=== PATIENT | female | born 1940 | race Caucasian/White ===

== ENCOUNTER 2021-11-05 19:56 | Inpatient (IN) | payer OTHER, MEDICARE ==
[2021-11-05] MEDS ORDERED: Ketorolac Tromethamine 30 MG/ML VIAL ONE (20:43)
[2021-11-05] MEDS ORDERED: Morphine 4 MG/ML VIAL ONE (20:43)
[2021-11-05 20:48] LABS: #Eosinphils 0.1 thou/uL (0.0-0.7); #Lymphocytes 1.1 thou/uL (1.20-3.40); #Monocytes 0.7 thou/uL (0.11-0.59); #Neutrophils 6.4 thou/uL (1.40-6.50); %Basophils 0.2 % (0.0-1.0); %Eosinophils 1.4 % (0.0-10.0); %Lymphocytes 12.9 % (21.0-51.0); %Monocytes 8.9 % (0.0-10.0); %Neutrophils 76.6 % (42.0-75.0); Hemoglobin 10.8 g/dL (12.0-16.0); Mean Corpuscular HGB CONC 30.2 g/dL (32.0-36.0); Mean Corpuscular Hemoglobin 23.8 pg (27.0-31.0); Mean Corpuscular Volume 78.6 fL (78.0-98.0); Mean Platelet Volume 8.2 fL (7.4-10.4); Platelet Count 294 thou/uL (130-400); RBC Distribution Width 18.2 % (11.5-14.5); Red Blood Cell (RBC) Count 4.56 mill/uL (4.20-5.40); White Blood Cell (WBC) Count 8.4 thou/uL (4.8-10.8)
[2021-11-05 21:09] LABS: ALT (SGPT) 15 U/L (8-55); AST (SGOT) 17 U/L (5-34); Albumin 3.6 g/dL (3.4-4.8); Alkaline Phosphatase 121 U/L (40-110); Anion Gap 13 mmol/L (10-20); BUN (Urea Nitrogen) 33 mg/dL (9.8-20.1); Bilirubin, Total 0.4 mg/dL (0.2-1.2); Calc. Creatinine Clearance 0 mL/min (70-130); Calcium 9.7 mg/dL (7.8-10.44); Carbon Dioxide 31 mmol/L (23-31); Chloride 101 mmol/L (98-107); Globulin 3.3 g/dL (2.4-3.5); Glucose 237 mg/dL (83-110); Potassium 3.9 mmol/L (3.5-5.1); Protein, Total 6.9 g/dL (5.8-8.1); Sodium 141 mmol/L (136-145)
[2021-11-05] MEDS ORDERED: Morphine 2 MG/ML VIAL SLOW IVP PRN (21:47)
[2021-11-05] MEDS ORDERED: Dextrose 5% in Water 1,000 ML IV PRN (21:47)
[2021-11-05] MEDS ORDERED: traMADol HCl 50 MG TAB PO PRN ×3 (21:47→21:54)
[2021-11-05] MEDS ORDERED: Dextrose 50% Abboject 50 ML SYRINGE SLOW IVP PRN (21:47)
[2021-11-05] MEDS ORDERED: Ondansetron ODT 4 MG TAB PO PRN (21:47)
[2021-11-05] MEDS ORDERED: hydrALAZINE 20 MG/ML VIAL SLOW IVP PRN (21:47)
[2021-11-05] MEDS ORDERED: Ondansetron PF 4 MG/2 ML Vial IVP PRN (21:47)
[2021-11-05 22:07] LABS: Phosphorus 2.9 mg/dL (2.3-4.7)
[2021-11-05] MEDS: traMADol HCl 50 MG TAB PO SCH (23:47)
[2021-11-05] MEDS: Cyclobenzaprine 10 MG TAB PO PRN (23:48)
[2021-11-05] MEDS: Acetaminophen 500 MG TAB PO SCH (23:48)
[2021-11-05] MEDS ORDERED: Sodium Chloride 0.9% 1,000 ML IV SCH (23:55)
[2021-11-06 01:00] LABS: SARS-CoV-2 NAA Rapid Test Not Detected (NotDetected)
[2021-11-06 02:16] VITALS: BMI 40.2
[2021-11-06 05:11] LABS: Bacteria/HPF 3+ HPF (None Seen); Bilirubin Negative (Negative); Blood, Urine Negative (Negative); Clarity Clear (Clear); Glucose, Urine (Dipstick) Normal (Negative); Ketone, Urine Negative (Negative); Leukocyte 500 Leu/uL (Negative); Nitrite 1+ (Negative); Protein, Urine (Dipstick) Negative (Neg-Trace); RBC/HPF 0-3 HPF (0-3); Specific Gravity, Urine 1.016 (1.002-1.036); Urobilinogen Normal mg/dL (Less than 2); WBC/HPF 21-50 HPF (0-3)
[2021-11-06] MEDS: Acetaminophen 500 MG TAB PO SCH ×4 (05:38→23:45)
[2021-11-06] MEDS: traMADol HCl 50 MG TAB PO SCH ×4 (05:40→23:46)
[2021-11-06 05:43] LABS: #Eosinphils 0.1 thou/uL (0.0-0.7); #Lymphocytes 0.7 thou/uL (1.20-3.40); #Monocytes 0.8 thou/uL (0.11-0.59); #Neutrophils 6.1 thou/uL (1.40-6.50); %Eosinophils 0.7 % (0.0-10.0); %Lymphocytes 9.3 % (21.0-51.0); %Monocytes 10.9 % (0.0-10.0); %Neutrophils 79.1 % (42.0-75.0); Hemoglobin 10.1 g/dL (12.0-16.0); Mean Corpuscular Hemoglobin 24.6 pg (27.0-31.0); Mean Corpuscular Volume 79.3 fL (78.0-98.0); Mean Platelet Volume 7.7 fL (7.4-10.4); Platelet Count 226 thou/uL (130-400); RBC Distribution Width 17.8 % (11.5-14.5); Red Blood Cell (RBC) Count 4.08 mill/uL (4.20-5.40); White Blood Cell (WBC) Count 7.7 thou/uL (4.8-10.8)
[2021-11-06 06:12] LABS: Anion Gap 11 mmol/L (10-20); BUN (Urea Nitrogen) 28 mg/dL (9.8-20.1); Calc. Creatinine Clearance 70 mL/min (70-130); Calcium 9.3 mg/dL (7.8-10.44); Carbon Dioxide 31 mmol/L (23-31); Chloride 104 mmol/L (98-107); Glucose 151 mg/dL (83-110); Phosphorus 4.3 mg/dL (2.3-4.7); Potassium 4.1 mmol/L (3.5-5.1); Sodium 142 mmol/L (136-145)
[2021-11-06] MEDS ORDERED: Morphine 2 MG/ML VIAL SLOW IVP PRN (07:27)
[2021-11-06] MEDS ORDERED: ceFAZolin 2 GM/Dextrose 50 ML 2 GM in Premix Bag 1 BAG IVPB SCH (07:45)
[2021-11-06] MEDS ORDERED: CEFAZOLIN 2 GM in Sodium Chloride 0.9% 100 ML IVPB SCH (07:45)
[2021-11-06] MEDS: Polyethylene Glycol 3350 17 GM Packet PO SCH (09:55)
[2021-11-06] MEDS: Montelukast Sodium 10 mg Tablet PO SCH (09:59)
[2021-11-06] MEDS: Gabapentin 300 MG CAP PO SCH ×2 (09:59→20:57)
[2021-11-06] MEDS: Senokot S 8.6-50 MG TAB PO SCH ×2 (10:01→20:57)
[2021-11-06] MEDS: Famotidine 20 MG TAB PO SCH ×2 (10:01→20:58)
[2021-11-06] MEDS: Amlodipine 10 MG TAB PO SCH (10:01)
[2021-11-06] MEDS: Sucralfate 1 GM TAB PO SCH ×3 (10:02→20:58)
[2021-11-06] MEDS: Insulin Regular 300 UNITS/3 ML VIAL SC PRN ×2 (13:29→20:58)
[2021-11-07] MEDS: Acetaminophen 500 MG TAB PO SCH ×4 (05:11→23:48)
[2021-11-07] MEDS: traMADol HCl 50 MG TAB PO SCH ×4 (05:12→23:48)
[2021-11-07 07:37] LABS: Anion Gap 11 mmol/L (10-20); BUN (Urea Nitrogen) 28 mg/dL (9.8-20.1); Calc. Creatinine Clearance 67 mL/min (70-130); Calcium 9.5 mg/dL (7.8-10.44); Carbon Dioxide 29 mmol/L (23-31); Chloride 105 mmol/L (98-107); Glucose 131 mg/dL (83-110); Magnesium 2.1 mg/dL (1.6-2.6); Phosphorus 3.6 mg/dL (2.3-4.7); Potassium 3.9 mmol/L (3.5-5.1); Sodium 141 mmol/L (136-145)
[2021-11-07] MEDS: Gabapentin 300 MG CAP PO SCH ×2 (08:25→19:57)
[2021-11-07] MEDS: Amlodipine 10 MG TAB PO SCH (08:25)
[2021-11-07] MEDS: Famotidine 20 MG TAB PO SCH ×2 (08:25→19:57)
[2021-11-07] MEDS: Senokot S 8.6-50 MG TAB PO SCH ×2 (08:25→19:58)
[2021-11-07 08:26] LABS: Hemoglobin 10.8 g/dL (12.0-16.0); Mean Corpuscular HGB CONC 29.6 g/dL (32.0-36.0); Mean Corpuscular Hemoglobin 23.7 pg (27.0-31.0); Mean Platelet Volume 8.3 fL (7.4-10.4); Platelet Count 209 thou/uL (130-400); RBC Distribution Width 18.1 % (11.5-14.5); Red Blood Cell (RBC) Count 4.57 mill/uL (4.20-5.40); White Blood Cell (WBC) Count 6.4 thou/uL (4.8-10.8)
[2021-11-07] MEDS: Polyethylene Glycol 3350 17 GM Packet PO SCH (08:26)
[2021-11-07] MEDS: Sucralfate 1 GM TAB PO SCH ×3 (08:26→19:58)
[2021-11-07] MEDS: Montelukast Sodium 10 mg Tablet PO SCH (08:26)
[2021-11-07 08:27] LABS: #Eosinphils 0.2 thou/uL (0.0-0.7); #Lymphocytes 0.8 thou/uL (1.20-3.40); #Monocytes 0.7 thou/uL (0.11-0.59); #Neutrophils 4.7 thou/uL (1.40-6.50); %Basophils 0.2 % (0.0-1.0); %Lymphocytes 13.1 % (21.0-51.0); %Monocytes 10.6 % (0.0-10.0); %Neutrophils 73.2 % (42.0-75.0)
[2021-11-07] MEDS ORDERED: Fentanyl 100 MCG/2 ML VIAL ONE ×2 (09:01→12:19)
[2021-11-07 09:34] LABS: Anisocytosis SLIGHT = 6-15 cells (100X) (0-5/hpf); Hypochromia SLIGHT = 6-15 cells (100X) (0-5/hpf); MDiff Complete? YES; Platelet Morphology Comment Appears Adequate; Polychromasia SLIGHT = 2-3 cells (100X) (0-2/hpf)
[2021-11-07] MEDS ORDERED: Lidocaine 1% (PF) 30 ML VIAL ONE (10:03)
[2021-11-07] MEDS ORDERED: CEFAZOLIN 2 GM VIAL ONE (10:23)
[2021-11-07] MEDS ORDERED: Sodium Chloride 0.9% 100 ML ONE (10:23)
[2021-11-07] MEDS ORDERED: Midazolam HCl 2 mg/2 ml Vial ONE (10:37)
[2021-11-07] MEDS ORDERED: ePHEDrine 50 MG/ML VIAL ONE (10:42)
[2021-11-07] MEDS ORDERED: PROPOFOL 200 MG/20 ML VIAL ONE (10:42)
[2021-11-07] MEDS ORDERED: Esmolol 100 MG/10 ML VIAL ONE (10:42)
[2021-11-07] MEDS ORDERED: Ondansetron PF 4 MG/2 ML Vial ONE (10:42)
[2021-11-07] MEDS ORDERED: Bupivacaine HCl 0.5%/Epinephrine 1:200,000/PF 30 ml Vial ONE (10:42)
[2021-11-07] MEDS ORDERED: Rocuronium Bromide 10 MG/ML (10ML VIAL) ONE (10:42)
[2021-11-07] MEDS ORDERED: fentaNYL Citrate/PF 100 MCG/2 ML SYRINGE ONE ×2 (10:57→11:54)
[2021-11-07] MEDS ORDERED: SUGAMMADEX SODIUM 200 MG/2 ML VIAL ONE (11:18)
[2021-11-07] MEDS ORDERED: Ondansetron HCl/PF 4 MG/2 ML Vial IVP PRN (11:51)
[2021-11-07] MEDS ORDERED: Promethazine HCl 25 MG/ML VIAL IVPB PRN (11:51)
[2021-11-07] MEDS ORDERED: Promethazine HCl 25 MG/ML VIAL IM PRN (11:51)
[2021-11-08] MEDS: CEFAZOLIN 2 GM in Sodium Chloride 0.9% 100 ML IVPB SCH ×2 (04:28→08:48)
[2021-11-08] MEDS: Acetaminophen 500 MG TAB PO SCH ×4 (05:30→23:41)
[2021-11-08] MEDS: traMADol HCl 50 MG TAB PO SCH ×4 (05:31→23:41)
[2021-11-08 07:21] LABS: #Eosinphils 0.2 thou/uL (0.0-0.7); #Lymphocytes 0.6 thou/uL (1.20-3.40); #Monocytes 0.8 thou/uL (0.11-0.59); #Neutrophils 6.2 thou/uL (1.40-6.50); %Basophils 0.3 % (0.0-1.0); %Lymphocytes 7.7 % (21.0-51.0); %Monocytes 10.5 % (0.0-10.0); %Neutrophils 78.5 % (42.0-75.0); Hemoglobin 9.8 g/dL (12.0-16.0); Mean Corpuscular HGB CONC 29.8 g/dL (32.0-36.0); Mean Corpuscular Hemoglobin 23.9 pg (27.0-31.0); Mean Platelet Volume 7.9 fL (7.4-10.4); Platelet Count 189 thou/uL (130-400); RBC Distribution Width 17.8 % (11.5-14.5); Red Blood Cell (RBC) Count 4.12 mill/uL (4.20-5.40); White Blood Cell (WBC) Count 7.8 thou/uL (4.8-10.8)
[2021-11-08 07:43] LABS: Anion Gap 11 mmol/L (10-20); BUN (Urea Nitrogen) 27 mg/dL (9.8-20.1); Calc. Creatinine Clearance 64 mL/min (70-130); Calcium 9.2 mg/dL (7.8-10.44); Carbon Dioxide 28 mmol/L (23-31); Chloride 105 mmol/L (98-107); Glucose 162 mg/dL (83-110); Magnesium 2.1 mg/dL (1.6-2.6); Phosphorus 4.3 mg/dL (2.3-4.7); Potassium 4.4 mmol/L (3.5-5.1); Sodium 140 mmol/L (136-145)
[2021-11-08] MEDS: Senokot S 8.6-50 MG TAB PO SCH ×2 (08:45→20:06)
[2021-11-08] MEDS: Amlodipine 10 MG TAB PO SCH (08:45)
[2021-11-08] MEDS: Montelukast Sodium 10 mg Tablet PO SCH (08:45)
[2021-11-08] MEDS: Multivit, Therapeutic 1 TAB PO SCH (08:46)
[2021-11-08] MEDS: Ascorbic Acid 500 mg Chewable Tablet PO SCH (08:46)
[2021-11-08] MEDS: Gabapentin 300 MG CAP PO SCH ×2 (08:46→20:08)
[2021-11-08] MEDS: Famotidine 20 MG TAB PO SCH ×2 (08:47→20:05)
[2021-11-08] MEDS: Sucralfate 1 GM TAB PO SCH ×3 (08:48→20:09)
[2021-11-08] MEDS: Polyethylene Glycol 3350 17 GM Packet PO SCH (08:49)
[2021-11-08] MEDS: traMADol HCl 50 MG TAB PO PRN (15:29)
[2021-11-08] MEDS: Insulin Regular 300 UNITS/3 ML VIAL SC PRN ×2 (17:32→21:14)
[2021-11-08] MEDS: Atorvastatin Calcium 40 MG TAB PO SCH (20:05)
[2021-11-08] MEDS: Apixaban 5 MG TAB PO SCH (20:07)
[2021-11-09] MEDS: traMADol HCl 50 MG TAB PO SCH ×4 (04:51→23:29)
[2021-11-09] MEDS: Acetaminophen 500 MG TAB PO SCH ×4 (04:51→23:29)
[2021-11-09 06:37] LABS: Hemoglobin 9.4 g/dL (12.0-16.0); Mean Corpuscular HGB CONC 29.2 g/dL (32.0-36.0); Mean Corpuscular Hemoglobin 23.9 pg (27.0-31.0); Mean Corpuscular Volume 81.8 fL (78.0-98.0); Mean Platelet Volume 8.6 fL (7.4-10.4); Platelet Count 181 thou/uL (130-400); Red Blood Cell (RBC) Count 3.92 mill/uL (4.20-5.40); White Blood Cell (WBC) Count 7.2 thou/uL (4.8-10.8)
[2021-11-09 06:53] LABS: #Eosinphils 0.3 thou/uL (0.0-0.7); #Lymphocytes 0.9 thou/uL (1.20-3.40); #Monocytes 0.9 thou/uL (0.11-0.59); #Neutrophils 5.1 thou/uL (1.40-6.50); %Basophils 0.2 % (0.0-1.0); %Eosinophils 4.1 % (0.0-10.0); %Lymphocytes 12.7 % (21.0-51.0); %Neutrophils 71.1 % (42.0-75.0); Anisocytosis SLIGHT = 6-15 cells (100X) (0-5/hpf); Hypochromia SLIGHT = 6-15 cells (100X) (0-5/hpf); MDiff Complete? YES
[2021-11-09 07:03] LABS: Anion Gap 11 mmol/L (10-20); BUN (Urea Nitrogen) 26 mg/dL (9.8-20.1); Calc. Creatinine Clearance 80 mL/min (70-130); Calcium 9.3 mg/dL (7.8-10.44); Carbon Dioxide 26 mmol/L (23-31); Chloride 103 mmol/L (98-107); Glucose 111 mg/dL (83-110); Magnesium 2.1 mg/dL (1.6-2.6); Phosphorus 2.9 mg/dL (2.3-4.7); Potassium 4.4 mmol/L (3.5-5.1); Sodium 136 mmol/L (136-145)
[2021-11-09] MEDS ORDERED: PHOS-NAK 1 PKT PACK PO SCH (08:00)
[2021-11-09] MEDS: Furosemide 40 MG TAB PO SCH ×2 (08:30→20:48)
[2021-11-09] MEDS: Montelukast Sodium 10 mg Tablet PO SCH (08:30)
[2021-11-09] MEDS: Senokot S 8.6-50 MG TAB PO SCH ×2 (08:31→20:48)
[2021-11-09] MEDS: Apixaban 5 MG TAB PO SCH ×2 (08:31→20:48)
[2021-11-09] MEDS: Ascorbic Acid 500 mg Chewable Tablet PO SCH (08:31)
[2021-11-09] MEDS: Famotidine 20 MG TAB PO SCH ×2 (08:31→20:48)
[2021-11-09] MEDS: Amlodipine 10 MG TAB PO SCH ×2 (08:32→11:07)
[2021-11-09] MEDS: Multivit, Therapeutic 1 TAB PO SCH (08:32)
[2021-11-09] MEDS: Sucralfate 1 GM TAB PO SCH ×3 (08:32→20:48)
[2021-11-09] MEDS: Gabapentin 300 MG CAP PO SCH ×3 (08:32→20:47)
[2021-11-09] MEDS: Polyethylene Glycol 3350 17 GM Packet PO SCH (08:33)
[2021-11-09] MEDS: Insulin Regular 300 UNITS/3 ML VIAL SC PRN ×3 (11:09→20:54)
[2021-11-09] MEDS: traMADol HCl 50 MG TAB PO PRN (14:22)
[2021-11-09] MEDS: Atorvastatin Calcium 40 MG TAB PO SCH (20:48)
[2021-11-09] MEDS: Lisinopril 10 MG TAB PO SCH (20:49)
[2021-11-09] MEDS ORDERED: Lisinopril 20 MG TAB PO SCH (21:00)
[2021-11-10] MEDS: Acetaminophen 500 MG TAB PO SCH ×4 (05:38→23:21)
[2021-11-10] MEDS: traMADol HCl 50 MG TAB PO SCH ×4 (05:38→23:21)
[2021-11-10 05:49] LABS: #Eosinphils 0.3 thou/uL (0.0-0.7); #Lymphocytes 1.1 thou/uL (1.20-3.40); #Monocytes 0.8 thou/uL (0.11-0.59); #Neutrophils 4.5 thou/uL (1.40-6.50); %Basophils 0.1 % (0.0-1.0); %Eosinophils 4.4 % (0.0-10.0); %Neutrophils 67.5 % (42.0-75.0); Hemoglobin 8.7 g/dL (12.0-16.0); Mean Corpuscular HGB CONC 30.1 g/dL (32.0-36.0); Mean Corpuscular Hemoglobin 24.1 pg (27.0-31.0); Mean Corpuscular Volume 79.9 fL (78.0-98.0); Platelet Count 201 thou/uL (130-400); RBC Distribution Width 17.7 % (11.5-14.5); Red Blood Cell (RBC) Count 3.61 mill/uL (4.20-5.40); White Blood Cell (WBC) Count 6.6 thou/uL (4.8-10.8)
[2021-11-10] MEDS: Insulin Regular 300 UNITS/3 ML VIAL SC PRN ×3 (06:17→17:26)
[2021-11-10 06:22] LABS: Anion Gap 11 mmol/L (10-20); BUN (Urea Nitrogen) 27 mg/dL (9.8-20.1); Calc. Creatinine Clearance 74 mL/min (70-130); Calcium 9.2 mg/dL (7.8-10.44); Carbon Dioxide 28 mmol/L (23-31); Chloride 103 mmol/L (98-107); Glucose 153 mg/dL (83-110); Phosphorus 2.8 mg/dL (2.3-4.7); Potassium 3.9 mmol/L (3.5-5.1); Sodium 138 mmol/L (136-145)
[2021-11-10] MEDS ORDERED: PHOS-NAK 1 PKT PACK PO SCH (07:45)
[2021-11-10] MEDS: Gabapentin 300 MG CAP PO SCH ×3 (08:38→21:02)
[2021-11-10] MEDS: Furosemide 40 MG TAB PO SCH ×2 (08:38→21:02)
[2021-11-10] MEDS: Senokot S 8.6-50 MG TAB PO SCH ×2 (08:38→21:03)
[2021-11-10] MEDS: Sucralfate 1 GM TAB PO SCH ×3 (08:38→21:03)
[2021-11-10] MEDS: Ascorbic Acid 500 mg Chewable Tablet PO SCH (08:39)
[2021-11-10] MEDS: Multivit, Therapeutic 1 TAB PO SCH (08:39)
[2021-11-10] MEDS: Montelukast Sodium 10 mg Tablet PO SCH (08:39)
[2021-11-10] MEDS: Lisinopril 10 MG TAB PO SCH ×2 (08:40→21:03)
[2021-11-10] MEDS: Apixaban 5 MG TAB PO SCH ×2 (08:40→21:02)
[2021-11-10] MEDS: Famotidine 20 MG TAB PO SCH ×2 (08:40→21:02)
[2021-11-10] MEDS: Polyethylene Glycol 3350 17 GM Packet PO SCH (08:40)
[2021-11-10] MEDS: Amlodipine 10 MG TAB PO SCH (08:40)
[2021-11-10] MEDS: traMADol HCl 50 MG TAB PO PRN (09:49)
[2021-11-10] MEDS: Atorvastatin Calcium 40 MG TAB PO SCH (21:02)
[2021-11-11] MEDS: Acetaminophen 500 MG TAB PO SCH ×3 (05:32→17:54)
[2021-11-11] MEDS: traMADol HCl 50 MG TAB PO SCH ×3 (05:32→17:54)
[2021-11-11] MEDS: Lisinopril 10 MG TAB PO SCH ×2 (09:00→21:51)
[2021-11-11] MEDS: Multivit, Therapeutic 1 TAB PO SCH (09:01)
[2021-11-11] MEDS: Famotidine 20 MG TAB PO SCH ×2 (09:01→21:51)
[2021-11-11] MEDS: Senokot S 8.6-50 MG TAB PO SCH (09:01)
[2021-11-11] MEDS: Amlodipine 10 MG TAB PO SCH (09:01)
[2021-11-11] MEDS: Gabapentin 300 MG CAP PO SCH ×3 (09:01→21:51)
[2021-11-11] MEDS: Apixaban 5 MG TAB PO SCH ×2 (09:01→21:51)
[2021-11-11] MEDS: Ascorbic Acid 500 mg Chewable Tablet PO SCH (09:01)
[2021-11-11] MEDS: Montelukast Sodium 10 mg Tablet PO SCH (09:02)
[2021-11-11] MEDS: Polyethylene Glycol 3350 17 GM Packet PO SCH (09:02)
[2021-11-11] MEDS: Sucralfate 1 GM TAB PO SCH ×3 (09:02→21:51)
[2021-11-11] MEDS: Furosemide 40 MG TAB PO SCH ×2 (09:02→21:52)
[2021-11-11] MEDS: traMADol HCl 50 MG TAB PO PRN (14:16)
[2021-11-11] MEDS: Potassium Chloride 10 MEQ TAB PO SCH (17:53)
[2021-11-11] MEDS: Atorvastatin Calcium 40 MG TAB PO SCH (21:51)
[2021-11-11] MEDS: Cyclobenzaprine 10 MG TAB PO PRN (21:52)
[2021-11-12] MEDS: Senokot S 8.6-50 MG TAB PO SCH ×3 (00:07→19:57)
[2021-11-12] MEDS: Acetaminophen 500 MG TAB PO SCH ×2 (00:11→05:57)
[2021-11-12] MEDS: traMADol HCl 50 MG TAB PO SCH ×2 (00:11→05:56)
[2021-11-12] MEDS: Lisinopril 10 MG TAB PO SCH ×2 (08:43→21:36)
[2021-11-12] MEDS: Potassium Chloride 10 MEQ TAB PO SCH ×2 (08:43→17:37)
[2021-11-12] MEDS: Furosemide 40 MG TAB PO SCH ×2 (08:44→21:36)
[2021-11-12] MEDS: Multivit, Therapeutic 1 TAB PO SCH (08:44)
[2021-11-12] MEDS: Amlodipine 10 MG TAB PO SCH (08:44)
[2021-11-12] MEDS: Gabapentin 300 MG CAP PO SCH (08:44)
[2021-11-12] MEDS: Famotidine 20 MG TAB PO SCH ×2 (08:44→21:39)
[2021-11-12] MEDS: Ascorbic Acid 500 mg Chewable Tablet PO SCH (08:44)
[2021-11-12] MEDS: Montelukast Sodium 10 mg Tablet PO SCH (08:44)
[2021-11-12] MEDS: Apixaban 5 MG TAB PO SCH ×2 (08:44→21:38)
[2021-11-12] MEDS: Polyethylene Glycol 3350 17 GM Packet PO SCH (08:46)
[2021-11-12] MEDS: traMADol HCl 50 MG TAB PO PRN (09:23)
[2021-11-12] MEDS: Sucralfate 1 GM TAB PO SCH ×3 (09:25→21:39)
[2021-11-12] MEDS ORDERED: Morphine 2 MG/ML VIAL SLOW IVP SCH (12:00)
[2021-11-12] MEDS: Acetaminophen/Codeine 30-300mg Tablet PO SCH ×3 (12:14→23:17)
[2021-11-12] MEDS: Insulin Regular 300 UNITS/3 ML VIAL SC PRN ×2 (13:08→21:47)
[2021-11-12] MEDS: Atorvastatin Calcium 40 MG TAB PO SCH (21:36)
[2021-11-12] MEDS: Pregabalin 50 MG CAP PO SCH (21:39)
[2021-11-12] MEDS: Cyclobenzaprine 10 MG TAB PO PRN (21:39)
[2021-11-13] MEDS: Acetaminophen/Codeine 30-300mg Tablet PO SCH ×3 (05:37→17:06)
[2021-11-13] MEDS: Insulin Regular 300 UNITS/3 ML VIAL SC PRN ×3 (05:42→21:50)
[2021-11-13] MEDS: Amlodipine 10 MG TAB PO SCH (09:13)
[2021-11-13] MEDS: Lisinopril 10 MG TAB PO SCH ×2 (09:13→20:47)
[2021-11-13] MEDS: Pregabalin 50 MG CAP PO SCH ×2 (09:14→20:46)
[2021-11-13] MEDS: Senokot S 8.6-50 MG TAB PO SCH ×2 (09:14→20:47)
[2021-11-13] MEDS: Ascorbic Acid 500 mg Chewable Tablet PO SCH (09:14)
[2021-11-13] MEDS: Multivit, Therapeutic 1 TAB PO SCH (09:14)
[2021-11-13] MEDS: Famotidine 20 MG TAB PO SCH (09:14)
[2021-11-13] MEDS: Potassium Chloride 10 MEQ TAB PO SCH ×2 (09:14→17:07)
[2021-11-13] MEDS: Montelukast Sodium 10 mg Tablet PO SCH (09:14)
[2021-11-13] MEDS: Apixaban 5 MG TAB PO SCH ×2 (09:14→20:47)
[2021-11-13] MEDS: Furosemide 40 MG TAB PO SCH (09:14)
[2021-11-13] MEDS: Sucralfate 1 GM TAB PO SCH ×3 (09:15→20:46)
[2021-11-13] MEDS: Polyethylene Glycol 3350 17 GM Packet PO SCH (09:15)
[2021-11-13 12:55] LABS: ALT (SGPT) 13 U/L (8-55); AST (SGOT) 22 U/L (5-34); Albumin 3.5 g/dL (3.4-4.8); Alkaline Phosphatase 136 U/L (40-110); Anion Gap 15 mmol/L (10-20); BUN (Urea Nitrogen) 27 mg/dL (9.8-20.1); Bilirubin, Total 0.5 mg/dL (0.2-1.2); Calc. Creatinine Clearance 55 mL/min (70-130); Calcium 10.3 mg/dL (7.8-10.44); Carbon Dioxide 31 mmol/L (23-31); Chloride 97 mmol/L (98-107); Globulin 3.6 g/dL (2.4-3.5); Glucose 180 mg/dL (83-110); Magnesium 1.9 mg/dL (1.6-2.6); Potassium 4.1 mmol/L (3.5-5.1); Protein, Total 7.1 g/dL (5.8-8.1); Sodium 139 mmol/L (136-145)
[2021-11-13 12:57] LABS: Phosphorus 3.5 mg/dL (2.3-4.7)
[2021-11-13] MEDS ORDERED: Magnesium Citrate 300 ML BOT PO SCH (13:30)
[2021-11-13] MEDS ORDERED: Sodium Chloride 0.9% 1,000 ML IV SCH (13:30)
[2021-11-13] MEDS ORDERED: Sodium Chloride 0.9% 500 ML IV SCH ×2 (14:30→23:45)
[2021-11-13] MEDS: Ferrous Sulfate 325 MG TAB PO SCH (17:07)
[2021-11-13] MEDS: Cyclobenzaprine 10 MG TAB PO PRN (20:46)
[2021-11-13] MEDS: Atorvastatin Calcium 40 MG TAB PO SCH (20:47)
[2021-11-14] MEDS: Acetaminophen/Codeine 30-300mg Tablet PO SCH ×3 (05:33→12:35)
[2021-11-14] MEDS: Insulin Regular 300 UNITS/3 ML VIAL SC PRN (05:35)
[2021-11-14 07:04] LABS: #Eosinphils 0.2 thou/uL (0.0-0.7); #Lymphocytes 1.1 thou/uL (1.20-3.40); #Monocytes 0.8 thou/uL (0.11-0.59); #Neutrophils 5.3 thou/uL (1.40-6.50); %Basophils 0.3 % (0.0-1.0); %Eosinophils 2.3 % (0.0-10.0); %Lymphocytes 14.8 % (21.0-51.0); %Monocytes 10.4 % (0.0-10.0); %Neutrophils 72.3 % (42.0-75.0); Hemoglobin 9.7 g/dL (12.0-16.0); Mean Corpuscular HGB CONC 29.7 g/dL (32.0-36.0); Mean Corpuscular Hemoglobin 23.7 pg (27.0-31.0); Mean Corpuscular Volume 79.7 fL (78.0-98.0); Mean Platelet Volume 8.8 fL (7.4-10.4); Platelet Count 229 thou/uL (130-400); RBC Distribution Width 18.9 % (11.5-14.5); White Blood Cell (WBC) Count 7.3 thou/uL (4.8-10.8)
[2021-11-14 07:23] LABS: Anion Gap 12 mmol/L (10-20); BUN (Urea Nitrogen) 27 mg/dL (9.8-20.1); Calc. Creatinine Clearance 72 mL/min (70-130); Calcium 9.6 mg/dL (7.8-10.44); Carbon Dioxide 30 mmol/L (23-31); Chloride 102 mmol/L (98-107); Glucose 169 mg/dL (83-110); Magnesium 1.8 mg/dL (1.6-2.6); Phosphorus 3.4 mg/dL (2.3-4.7); Potassium 4.3 mmol/L (3.5-5.1); Sodium 140 mmol/L (136-145)
[2021-11-14] MEDS ORDERED: Furosemide 40 MG TAB PO SCH (09:00)
[2021-11-14] MEDS: Lisinopril 10 MG TAB PO SCH (09:16)
[2021-11-14] MEDS: Polyethylene Glycol 3350 17 GM Packet PO SCH (09:16)
[2021-11-14] MEDS: Pregabalin 50 MG CAP PO SCH (09:16)
[2021-11-14] MEDS: Ascorbic Acid 500 mg Chewable Tablet PO SCH (09:17)
[2021-11-14] MEDS: Senokot S 8.6-50 MG TAB PO SCH (09:17)
[2021-11-14] MEDS: Montelukast Sodium 10 mg Tablet PO SCH (09:18)
[2021-11-14] MEDS: Amlodipine 10 MG TAB PO SCH (09:18)
[2021-11-14] MEDS: Potassium Chloride 10 MEQ TAB PO SCH (09:18)
[2021-11-14] MEDS: Ferrous Sulfate 325 MG TAB PO SCH ×2 (09:18→16:29)
[2021-11-14] MEDS: Multivit, Therapeutic 1 TAB PO SCH (09:18)
[2021-11-14] MEDS: Apixaban 5 MG TAB PO SCH (09:18)
[2021-11-14] MEDS: Sucralfate 1 GM TAB PO SCH ×2 (12:37→16:29)
[2021-11-14 15:23] VITALS: BP 149/84; TEMP 97.9
== END 2021-11-14 16:25 | DRG 481 ==
LOC: ERS 19:56 → SURG B 21:27
PROVIDERS: ADMIT Surgery; ATTEND Surgery
PROC: 0QS606Z Reposition Right Upper Femur with Intramedullary Internal Fixation Device, Open Approach (ICD-10-PCS; principal; 2021-11-07)
DX: S72.141A Displaced intertrochanteric fracture of right femur, initial encounter for closed fracture (principal); N17.9 Acute kidney failure, unspecified; Z68.41 Body mass index [BMI] 40.0-44.9, adult; E11.65 Type 2 diabetes mellitus with hyperglycemia; I11.0 Hypertensive heart disease with heart failure; Z20.822 Contact with and (suspected) exposure to COVID-19; I50.9 Heart failure, unspecified; I48.91 Unspecified atrial fibrillation; Z96.651 Presence of right artificial knee joint; E66.9 Obesity, unspecified; J84.10 Pulmonary fibrosis, unspecified; H91.3 Deaf nonspeaking, not elsewhere classified; W01.0XXA Fall on same level from slipping, tripping and stumbling without subsequent striking against object, initial encounter; Y92.009 Unspecified place in unspecified non-institutional (private) residence as the place of occurrence of the external cause; Z90.2 Acquired absence of lung [part of]; Z88.2 Allergy status to sulfonamides; Z79.899 Other long term (current) drug therapy; Z79.01 Long term (current) use of anticoagulants
CPT/HCPCS: 36415; 36416; 70450; 71045; 72170; 76000; 80048; 80053; 81003; 81015; 83735; 83880; 84100; 84484; 85025; 86850; 86900; 86901; 93005; 93306; 96374; 96375; C1713; J0360; J0690; J1815; J1885; J2001; J2250; J2270; J2405; J2704; J3010; J3490; J7030; J7050; U0002; U0003; U0005

== ENCOUNTER 2022-08-17 07:48 | Outpatient (CLI) | payer MEDICARE | END 2022-08-17 07:49 | disposition home or self-care (01) | LOC: BICULT 07:48 | PROVIDERS: ATTEND Internal Medicine | DX: E04.9 Nontoxic goiter, unspecified (principal); E04.2 Nontoxic multinodular goiter | CPT/HCPCS: 76536 ==